=== PATIENT | female | born 1985 | race African-American/Black ===

== ENCOUNTER 2017-03-19 13:50 | Emergency (ER) | payer MEDICAID, OTHER ==
[~2017-03-19] VITALS: Ht 154.9 cm; Wt 52.2 kg
[2017-03-19 14:08] VITALS: BP 99/60
[2017-03-19 14:24] LABS: APPEARANCE,URINE SLIGHTLY CLOUDY; BILIRUBIN, URINE NEGATIVE (NEGATIVE); COLOR,URINE PALE YELLOW; GLUCOSE, URINE (UA) NEGATIVE (NEGATIVE); KETONES,URINE NEGATIVE (NEGATIVE); LEUKOCYTE ESTERASE ,URINE NEGATIVE (NEGATIVE); NITRITE,URINE NEGATIVE (NEGATIVE); PH,URINE 7 (4.5-8.0); PROTEIN,URINE NEGATIVE (NEGATIVE); UROBILINOGEN,URINE NORMAL MG/DL (0.0-1.0)
[2017-03-19] MEDS ORDERED: Ibuprofen Susp 100mg/5ml ORAL ONE (14:30)
[2017-03-19] MEDS ORDERED: METRONIDAZOLE500 MG ORAL (15:20)
[2017-03-19] MEDS ORDERED: IBUPROFEN600 MG ORAL (15:20)
[2017-03-19 15:24] VITALS: BP 110/62
--- NOTE | 2017-03-19 15:26 | Emergency Room Report ---
History of Present Illness General Chief Complaint: Pelvic Pain Source: Patient Present Illness HPI 31YOF walk in with change in vaginal discharge - white to yellow - and dysuria for 1 week Deneis history of STD. Denies abd pain, nausea/vomiting, flank pain, polyuria Also c/o left sided chest pain from fall accidentally yesterday Denies SOB, fever/chills Allergies: Coded Allergies: No Known Allergies (Unverified , 03/19/17) Patient History Past Medical History: none Past Surgical History: none Pertinent Family History: none Social History: Denies: smoking, alcohol use, drug use Last Menstrual Period: 03/11/17 Now: No Immunizations: UTD Reviewed Nursing Documentation: PMH: Agreed, PSxH: Agreed Nursing Documentation-PMH Past Medical History: No Stated History Review of Systems All Other Systems: negative except mentioned in HPI Physical Exam Vital Signs Date Time Temp Pulse Resp B/P (MAP) Pulse Ox O2 Delivery O2 Flow Rate FiO2 03/19/17 13:58 98.1 73 17 104/66 98 Room Air Sp02 EP Interpretation: reviewed, normal General Appearance: normal inspection, well appearing, no apparent distress, alert, GCS 15, non-toxic Head: normocephalic, atraumatic ENT: normal ENT inspection, hearing grossly normal, normal voice Neck: normal inspection, full range of motion, supple, no bony tend Respiratory: normal inspection, lungs clear, normal breath sounds, no respiratory distress, no retraction, no wheezing, other - Mild ttp to left side of chest wall, no ecchymoses. No crepitus, chest symmetrical Cardiovascular #1: regular rate, rhythm, no edema Gastrointestinal: normal inspection, normal bowel sounds, non tender, soft, no guarding, no hernia Genitourinary: no CVA tenderness Musculoskeletal: normal inspection, back normal, normal range of motion, Trent' s Sign negative Neurologic: normal inspection, alert, responsive, speech normal Psychiatric: normal inspection, judgement/insight normal, mood/affect normal Skin: normal inspection, normal color, no rash Medical Decision Making Diagnostic Impression: Primary Impression: Vaginal discharge Additional Impression: Chest wall pain ER Course Vaginal discharge: UA negative for UTI. Negative urine preg. ?bacterial vaginosis. Rx Flagyl given Left sided chest wall pain: No PTX. No rib fx on ED review DC home with Rx Motrin Chest X-Ray Diagnostic Results Chest X-Ray Diagnostic Results : Chest X-Ray Ordered: Yes # of Views/Limited/Complete: 1 View Indication: Chest Pain EP Interpretation: Yes Interpretation: no consolidation, no effusion, no pneumothorax, no acute cardiopulmonary disease Impression: No acute disease Electronically Signed by: Dr Eldon Grant MD Other X-Ray Diagnostic Results Other X-Ray Diagnostic Results : # of Views/Limited Vs Complete: 3 View Indication: Pain EP Interpretation: Yes Interpretation: no dislocation, no soft tissue swelling, no fractures Impression: No acute disease Electronically Signed by: Dr Eldon Grant MD Last Vital Signs Date Time Temp Pulse Resp B/P (MAP) Pulse Ox O2 Delivery O2 Flow Rate FiO2 03/19/17 14:08 98.1 17 99/60 98 Room Air 03/19/17 13:58 73 Status: improved Disposition: HOME, SELF-CARE Condition: Improved Scripts Metronidazole* (FLAGYL*) 500 Mg Tablet 500 MG ORAL EVERY 12 HOURS for 7 Days, #14 TAB Prov: ELDON GRANT M.D. 03/19/17 Ibuprofen* (MOTRIN*) 600 Mg Tablet 600 MG ORAL THREE TIMES A DAY for rib pain for 7 Days, #30 TAB 0 Refills Prov: ELDON GRANT M.D. 03/19/17 Patient Instructions: Bacterial Vaginosis, [id number], Rib Contusion Additional Instructions: - Take all of flagyl until finished but DO NOT DRINK alcohol - Take motrin up to 3x a day with food for pain of left ribs ELDON GRANT M.D. Mar 19, 2017 15:26
--- NOTE | 2017-03-19 15:50 | Diagnostic Imaging Report ---
Indication: Left mid thoracic pain Technique: Multiple views of the left ribs Comparison: None Findings: No gross pneumothorax. No fractures. Impression: Negative
--- NOTE | 2017-03-19 15:50 | Diagnostic Imaging Report ---
Indication: PAIN Technique: One view of the chest Comparison: none Findings: Lungs and pleural spaces are clear. Heart size is normal. Impression: No acute process
--- NOTE | 2017-03-19 15:50 | Diagnostic Imaging Report ---
Indication: PAIN Technique: One view of the chest Comparison: none Findings: Lungs and pleural spaces are clear. Heart size is normal. Impression: No acute process
--- NOTE | 2017-03-19 15:50 | Diagnostic Imaging Report ---
Indication: Left mid thoracic pain Technique: Multiple views of the left ribs Comparison: None Findings: No gross pneumothorax. No fractures. Impression: Negative
--- NOTE | 2017-03-19 15:50 | Diagnostic Imaging Report ---
Indication: PAIN Technique: One view of the chest Comparison: none Findings: Lungs and pleural spaces are clear. Heart size is normal. Impression: No acute process
--- NOTE | 2017-03-19 15:50 | Diagnostic Imaging Report ---
Indication: Left mid thoracic pain Technique: Multiple views of the left ribs Comparison: None Findings: No gross pneumothorax. No fractures. Impression: Negative
== END 2017-03-19 15:24 | disposition home or self-care (01) ==
LOC: EMR 15:15
DX: N89.8 Other specified noninflammatory disorders of vagina (principal); R07.89 Other chest pain; R30.0 Dysuria
CPT/HCPCS: 71010; 81003; 81025; 99284